=== PATIENT | female | born 1965 | race African-American/Black ===

== ENCOUNTER → 2019-07-31 | Day surgery (SDC) | payer MEDICARE ==
[~2019-07-31] MED LIST: Atenolol PO; CLON0.1T14 PO; CLOP75TA15 PO; DOCU-138 PO; Hydralazine Hcl PO; LIDOCAINE HCL 1% 20ML VIAL (Pyxis) INJ ONE; LISI-651 PO; SODIUM BICARBONATE 4% (2.4MEQ) 5ML VIAL IV ONE
== END | disposition home or self-care (01) ==
LOC: RAD 10:46
PROVIDERS: ATTEND Internal Medicine Geriatric Medicine
DX: E04.2 Nontoxic multinodular goiter (principal); Z79.899 Other long term (current) drug therapy; Z88.1 Allergy status to other antibiotic agents
CPT/HCPCS: 10005; 88172; 88173; J3490